=== PATIENT | female | born 1970 | race African-American/Black ===

== ENCOUNTER 2016-09-18 09:41 | Emergency (ER) | payer SELFPAY ==
[~2016-09-18] VITALS: Ht 167.6 cm; Wt 53.5 kg
--- NOTE | 2016-09-18 10:10 | RAD ---
Left ankle radiographs History: Twisted her ankle while walking, pain. Comparison: None. Findings: AP, lateral, and oblique views of the left ankle. No acute fracture or dislocation is identified. Lateral ankle soft tissue swelling is seen. Impression: Lateral ankle soft tissue swelling. No acute osseous traumatic injury identified.
--- NOTE | 2016-09-18 10:14 | ED.ADGEN ---
Past History Past Medical History: No Pertinent History Adult General Chief Complaint Chief Complaint left ankle pain HPI HPI Patient is a 46 year old female who presents with left ankle pain and swelling. Pt inverted her foot yesterday and then worked on the affected injury for 12 hours. Pain and swelling most prominent on lateral aspect with some radiation into the foot. She has injured the ankle before, no surgeries, denies other injuries. Review of Systems Review of Systems Constitutional: Denies fever or chills [] Eyes: Denies change in visual acuity, redness, or eye pain [] HENT: Denies nasal congestion or sore throat [] Respiratory: Denies cough or shortness of breath [] Cardiovascular: no chest pain GI: Denies abdominal pain, nausea, vomiting, bloody stools or diarrhea [] : Denies dysuria or hematuria [] Musculoskeletal: Denies back pain Integument: Denies rash or skin lesions [] Neurologic: Denies headache, focal weakness or sensory changes [] Allergies Allergies Allergies Coded Allergies Type Severity Reaction Last Updated Verified doxycycline Allergy Intermediate 09/18/16 Yes Physical Exam Physical Exam Constitutional: Well developed, well nourished, no acute distress, non-toxic appearance. [] HENT: Normocephalic, atraumatic Eyes: conjunctiva normal, no discharge. [] Neck: Normal range of motion, no tenderness, supple, no stridor. [] Cardiovascular:Heart rate regular with regular rhythm Lungs & Thorax: no respiratory distress Skin: Warm, dry, intact Extremities: left ankle with lateral malleolus edema and ttp, limited ROM 2/2 to pain, no deformity, pulse intact, no ttp over the foot or proximal left, knee , achilles intact Neurologic: Alert and oriented X 3, normal motor function, normal sensory function, no focal deficits noted. [] Psychologic: Affect normal, judgement normal, mood normal. [] Current Patient Data Vital Signs Vital Signs Date Time Temp Pulse Resp B/P Pulse Ox O2 Delivery O2 Flow Rate FiO2 09/18/16 10:26 84 22 202/117 98 Room Air 09/18/16 09:45 97.9 Lab Results Laboratory Tests Test 09/18/16 10:44 POC Hemoglobin 14.6gm/dL POC Hematocrit 43% POC Sodium 140mmol/L (135-145) POC Potassium 3.7mmol/L (3.5-5.0) POC Chloride 99mmol/L (98-110) POC Total CO2 26mmol/L (23-32) Anion Gap 20mmol/L (6-14) H POC Blood Urea Nitrogen 8mg/dL (8-26) POC Creatinine 0.8mg/dL (0.5-1.4) Glucose Level 94mg/dL (60-99) POC Ionized Calcium (Cornelius) 1.15mmol/L (1.13-1.32) EKG EKG [] Radiology/Procedures Radiology/Procedures xray ankle: Impression: Lateral ankle soft tissue swelling. No acute osseous traumatic injury identified. Course & Med Decision Making Course & Med Decision Making Pertinent Labs and Imaging studies reviewed. (See chart for details) Pt has ankle sprain, no fx on XRay. Placed in aircast. Recommended RICE care, ibuprofen for pain. Patient has elevated BP, she denies known h/o htn. Istat chemistry ordered, normal Cr, no symptoms with respect to HTN. Will start pt on HCTZ 25mg and I explained to pt the need to f/u with PCP and have it rechecked . Final Impression Final Impression Ankle sprain elevated blood pressure[] Problems: Dragon Disclaimer Dragon Disclaimer This electronic medical record was generated, in whole or in part, using a voice recognition dictation system. YVON ALCANTARA MD Sep 18, 2016 10:14
[2016-09-18] MEDS ORDERED: IBUP600T16 PO (10:17)
[2016-09-18 10:26] VITALS: BP 202/117
[2016-09-18 10:48] LABS: HEMOGLOBIN ISTAT 14.6 gm/dL; POTASSIUM ISTAT 3.7 mmol/L (3.5-5.0)
[2016-09-18] MEDS ORDERED: HYDR25TA9 PO (10:49)
== END 2016-09-18 10:59 | disposition home or self-care (01) ==
LOC: ER 09:41
DX: S93.402A Sprain of unspecified ligament of left ankle, initial encounter (principal); I10 Essential (primary) hypertension; Z88.1 Allergy status to other antibiotic agents; X58.XXXA Exposure to other specified factors, initial encounter; Y93.89 Activity, other specified; Y99.8 Other external cause status; Y92.89 Other specified places as the place of occurrence of the external cause
CPT/HCPCS: 29515; 73610; 80047; 99284-25

== ENCOUNTER 2021-09-14 15:00 | Emergency (ER) | payer SELFPAY ==
[~2021-09-14] VITALS: Ht 167.6 cm; Wt 57.0 kg
[~2021-09-14 15:00] MED LIST: HYDR-2145 PO; IBUP600T16 PO
[2021-09-14 15:18] VITALS: BP 155/81
--- NOTE | 2021-09-14 16:05 | RAD ---
Study: 1. XR EXAM OF ANKLE_RIGHT 3VIEWS 2. XR RT TIBIA+FIBULA Indication: Fall. Comparison: None. Findings: AP and lateral views of the tibia/fibula and AP, oblique and lateral views of the ankle. Obliquely oriented, mildly displaced fracture of the distal tibial shaft with cortical offset by appr oximately 4 mm proximally and 3 mm distally. Mild comminution. The craniocaudal length of the fractur e is around 8 cm. The proximal tibia is intact. The fibula is intact. No fracture or malalignment at the partially assessed knee. Intact malleoli. Symmetric ankle mortise considering the absence of weightbearing. Unremarkable talar dome and rest of the partially assessed foot. Impression: Right tibia/fibula and right ankle: Obliquely oriented, mildly comminuted and minimally displaced fracture of the distal tibial shaft ext ending over a length of approximately 8 cm. No fracture seen elsewhere. Maintained alignment at the k nee and ankle joints. Electronically signed by: REEMA FORTE MD (09/14/2021 4:03 PM) [facility]
--- NOTE | 2021-09-14 16:11 | PHYS DOC ---
Past History Past Medical History: No Pertinent History (BRIT SANTOS APRN) Past Surgical History: Tonsillectomy, Other (BRIT SANTOS APRN) Alcohol Use: Occasionally Drug Use: None (BRIT SANTOS APRN) General Adult EDM: Chief Complaint: ANKLE PROBLEM HPI: HPI: Patient is a 51-year-old female who came in with right leg pain. Patient states last night she was out on her deck smoking a cigarette when she got up to walk inside she twisted her leg. Patient is unable to bear weight. Pedal pulses intact. Cap refill less than 2 seconds. Sensations intact. Denies taking anything today for pain. Pain is worse with movement. Denies medical history. (BRIT SANTOS APRN) Review of Systems: Review of Systems: ROS At least 10 ROS systems have been reviewed and are negative except as documented in the HPI. General: Negative except as outlined in HPI above. Skin: Negative except as outlined in HPI above. HEENT: Negative except as outlined in HPI above. Neck: Negative except as outlined in HPI above. Respiratory: Negative except as outlined in HPI above.. Cardiovascular: Negative except as outlined in HPI above. Abdomen: Negative except as outlined in HPI above. : Negative except as outlined in HPI above. Back/MSK: Negative except as outlined in HPI above. Neuro: Negative except as outlined in HPI above. Psych: Negative except as outlined in HPI above. (BRIT SANTOS APRN) Allergies: Allergies: Allergies Coded Allergies Type Severity Reaction Last Updated Verified doxycycline Allergy Intermediate 09/18/16 Yes (BRIT SANTOS APRN) Physical Exam: PE: Constitutional: Well developed, well nourished, no acute distress, non-toxic appearance. [] HENT: Normocephalic, atraumatic, bilateral external ears normal, oropharynx moist, no oral exudates, nose normal. [] Eyes: PERRLA, EOMI, conjunctiva normal, no discharge. [] Neck: Normal range of motion, no tenderness, supple, no stridor. [] Cardiovascular:Heart rate regular rhythm, no murmur [] Lungs & Thorax: Bilateral breath sounds clear to auscultation [] Abdomen: Bowel sounds normal, soft, no tenderness, no masses, no pulsatile masses. [] Skin: Warm, dry, no erythema, no rash. [] Back: No tenderness, no CVA tenderness. [] Extremities: Right lower leg tenderness, mild swelling, unable to bear weight on right leg, pedal pulses intact Neurologic: Alert and oriented X 3, normal motor function, normal sensory function, no focal deficits noted. [] Psychologic: Affect normal, judgement normal, mood normal. [] (BRIT SANTOS APRN) Current Patient Data: Vital Signs: Vital Signs Date Time Temp Pulse Resp B/P (MAP) Pulse Ox O2 Delivery O2 Flow Rate FiO2 09/14/21 15:18 98.0 91 16 155/81 (105) 99 Room Air (BRIT SANTOS APRN) EKG: EKG: [] (BRIT SANTOS APRN) Radiology/Procedures: Radiology/Procedures: []Study: 1. XR EXAM OF ANKLE_RIGHT 3VIEWS 2. XR RT TIBIA+FIBULA Indication: Fall. Comparison: None. Findings: AP and lateral views of the tibia/fibula and AP, oblique and lateral views of the ankle. Obliquely oriented, mildly displaced fracture of the distal tibial shaft with cortical offset by approximately 4 mm proximally and 3 mm distally. Mild comminution. The craniocaudal length of the fracture is around 8 cm. The proximal tibia is intact. The fibula is intact. No fracture or malalignment at the partially assessed knee. Intact malleoli. Symmetric ankle mortise considering the absence of weightbearing. Unremarkable talar dome and rest of the partially assessed foot. Impression: Right tibia/fibula and right ankle: Obliquely oriented, mildly comminuted and minimally displaced fracture of the distal tibial shaft extending over a length of approximately 8 cm. No fracture seen elsewhere. Maintained alignment at the knee and ankle joints. Electronically signed by: REEMA FORTE MD (09/14/2021 4:03 PM) [facility] Study: 1. XR EXAM OF ANKLE_RIGHT 3VIEWS 2. XR RT TIBIA+FIBULA Indication: Fall. Comparison: None. Findings: AP and lateral views of the tibia/fibula and AP, oblique and lateral views of the ankle. Obliquely oriented, mildly displaced fracture of the distal tibial shaft with cortical offset by approximately 4 mm proximally and 3 mm distally. Mild comminution. The craniocaudal length of the fracture is around 8 cm. The pr oximal tibia is intact. The fibula is intact. No fracture or malalignment at the partially assessed knee. Intact malleoli. Symmetric ankle mortise considering the absence of weightbearing. Unremarkable talar dome and rest of the partially assessed foot. Impression: Right tibia/fibula and right ankle: Obliquely oriented, mildly comminuted and minimally displaced fracture of the distal tibial shaft extending over a length of approximately 8 cm. No fracture seen elsewhere. Maintained alignment at the knee and ankle joints. Electronically signed by: REEMA FORTE MD (09/14/2021 4:03 PM) [facility] (BRIT SANTOS APRN) Heart Score: C/O Chest Pain: No Risk Factors: Risk Factors: DM, Current or recent (<one month) smoker, HTN, HLP, family history of CAD, obesity. Risk Scores: Score 0 - 3: 2.5% MACE over next 6 weeks - Discharge Home Score 4 - 6: 20.3% MACE over next 6 weeks - Admit for Clinical Observation Score 7 - 10: 72.7% MACE over next 6 weeks - Early Invasive Strategies (BRIT SANTOS APRN) Course & Med Decision Making: Course & Med Decision Making Pertinent Labs and Imaging studies reviewed. (See chart for details) [] 51-year-old female came in with right leg pain. Patient states that she stood up out of her chair and twisted her right leg. X-ray of right leg obtained. Patient given hydrocodone for pain. Mildly comminuted and minimally displaced fracture of the distal tibial shaft. Posterior long leg splint applied. Educated RICE. Ibuprofen for break through pain. Sending patient home with prescription for hydrocodone and ortho follow up. (BRIT SANTOS APRN) Course & Med Decision Making Did not see or evaluate patient. Did not discuss patient with [employer] [facility] [facility]PECT[facility]. Generally agree with [employer] INSPECTOR's work-up and disposition per note. (BEBO JANE MD) [place] Disclaimer: Dragon Disclaimer: This electronic medical record was generated, in whole or in part, using a voice recognition dictation system. (BRIT SANTOS APRN) Departure Departure: Impression: Primary Impression: Tibia fracture Qualified Codes: S82.301A - Unspecified fracture of lower end of right tibia, initial encounter for closed fracture Disposition: HOME / SELF CARE / HOMELESS Condition: STABLE Referrals: PCP,NO (PCP) Patient Instructions: Tibial Fracture, Adult Additional Instructions: You are seen in the emergency room for right leg pain. Your x-ray showed a tibia fracture. We have placed a splint on your right leg and gave you crutches. Rest, use ice to the area, elevate. You need to follow-up with [facility]. Please call them on Wednesday and make an appointment. I am sending you home with hydrocodone to take for pain. You can take ibuprofen for breakthrough pain. Return to emergency room for worsening symptoms or concerns. EMERGENCY DEPARTMENT GENERAL DISCHARGE INSTRUCTIONS Thank you for coming to [facility] (ED) today and trusting us with you care. We trust that you had a positivie experience in our Emergency Department. If you wish to speak to the department management, you may call the director at [phone]. YOUR FOLLOW UP INSTRUCTIONS ARE FOLLOWS: 1. Do you have a private Doctor? If you do not have a private doctor, please ask for a resource list of physicians or clinics that may be able to assist you with foll ow up care. 2. The Emergency Physician has interpreted your x-rays. The X-Ray specialist will also review them. If there is a change in the findings, you will be notified in 48 hours when at all possible. 3. A lab test or culture has been done, your results will be reviewed and you will be notified if you need a change in treatment. ADDITIONAL INSTRUCTIONS AND INFORMATION: 1. Your care today has been supervised by a physician who is specially trained in emergency care. Many problems require more than one evaluation for a complete diagnosis and treatment. We recommend that you schedule your follow up appointment as re commended to ensure complete treatment of you illness or injury. If you are unable to obtain follow up care and continue to have a problem, or if your condition worsens, we recommend that you return to the ED. 2. We are not able to safely determine your condition over the phone nor are we able to give sound medical advice over the phone. For these safety reasons, if you call for medical advice we will ask you to come to the ED for further evaluation. 3. If you have any questions regarding these discharge instructions please call the ED at [phone]. SAFETY INFORMATION: In the interest of safety, wellness, and injury prevention; we encourage you to wear your sealbelt, if you smoke; quite smoking, and we encourage family to use a protective helmet for bicycling and other sporting events that present an increased risk for head injury. IF YOUR SYMPTOMS WORSEN OR NEW SYMPTOMS DEVELOP, OR YOU HAVE CONCERNS ABOUT YOUR CONDITION; OR IF YOUR CONDITION WORSENS WHILE YOU ARE WAITING FOR YOUR FOLLOW UP APPOINTMENT; EITHER CONTACT YOUR PRIMARY CARE DOCTOR, THE PHYSICIAN WHOSE NAME AND NUMBER YOU WERE GIVEN, OR RETURN TO THE ED IMMEDIATELY. Scripts Hydrocodone Bit/Acetaminophen (HYDROCODONE-APAP 5-325 ) 1 Each Tablet 1 TAB PO PRN Q6HRS PRN for PAIN for 3 Days, #12 TAB 0 Refills Prov: BRIT SANTOS APRN 09/14/21 BRIT SANTOS APRN Sep 14, 2021 16:10 BEBO JANE MD Sep 17, 2021 18:19
[2021-09-14] MEDS ORDERED: HYDROcodone/APAP 5/325MG 1 TAB TABLET PO ONE ×2 (16:15→17:15)
[2021-09-14] MEDS ORDERED: HYDR-2155 PO (16:27)
== END 2021-09-14 17:29 | disposition home or self-care (01) ==
LOC: ER 15:00
DX: S82.391A Other fracture of lower end of right tibia, initial encounter for closed fracture (principal); F17.210 Nicotine dependence, cigarettes, uncomplicated; Z88.1 Allergy status to other antibiotic agents; X50.9XXA Other and unspecified overexertion or strenuous movements or postures, initial encounter; Y93.89 Activity, other specified; Y92.89 Other specified places as the place of occurrence of the external cause; Y99.8 Other external cause status
CPT/HCPCS: 29505; 73590; 73610; 99284

== ENCOUNTER → 2021-09-19 | Outpatient (CLI) | payer OTHER ==
[2021-09-14 15:18] VITALS: BP 155/81
[~2021-09-19] MED LIST changes: +HYDR-2155 PO
--- NOTE | 2021-09-19 16:49 | RAD ---
EXAMINATION: XR EXAM OF ANKLE_RIGHT 3VIEWS CLINICAL HISTORY: Reason follow-up right distal tibia fracture 09/14/2021. TECHNIQUE: XR EXAM OF ANKLE_RIGHT 3VIEWS COMPARISON: 09/14/2021 FINDINGS/ IMPRESSION: Overlying fiberglass cast limits evaluation of fine osseous and soft tissue detail. Minimally displaced comminuted distal tibial metadiaphysis fracture remains in similar alignment with persistent radiolucent fracture planes. Joint spaces and alignment at the ankle maintained. Similar to slightly increased medial soft tissue swelling. Electronically signed by: Yousif Lehman DO (09/19/2021 4:46 PM) [id number]
== END ==
LOC: RAD 15:03
PROVIDERS: ATTEND Podiatrist
DX: S82.871A Displaced pilon fracture of right tibia, initial encounter for closed fracture (principal); M79.89 Other specified soft tissue disorders; X58.XXXA Exposure to other specified factors, initial encounter; Y93.89 Activity, other specified; Y92.89 Other specified places as the place of occurrence of the external cause; Y99.8 Other external cause status
CPT/HCPCS: 73610

== ENCOUNTER → 2021-10-31 | Outpatient (CLI) | payer OTHER ==
--- NOTE | 2021-10-31 16:37 | RAD ---
XR EXAM OF ANKLE_RIGHT 3VIEWS History: Follow-up ankle fracture. Pain. Comparison: 09/19/2021, 09/14/2021 Findings: Disuse osteopenia. Redemonstrated spiral fracture of the distal tibial metadiaphysis, now with healin g callus. Mild apex lateral angulation. The ankle mortise and talar dome are intact. No significant d egenerative changes. Soft tissues are unremarkable. Impression: 1. Healing spiral fracture distal tibial metadiaphysis. Electronically signed by: Raul Willoughby MD (10/31/2021 4:35 PM) [id number]
== END ==
LOC: RAD 13:35
PROVIDERS: ATTEND Podiatrist
DX: S82.871A Displaced pilon fracture of right tibia, initial encounter for closed fracture (principal); M85.871 Other specified disorders of bone density and structure, right ankle and foot; M21.861 Other specified acquired deformities of right lower leg; X58.XXXA Exposure to other specified factors, initial encounter; Y93.89 Activity, other specified; Y92.89 Other specified places as the place of occurrence of the external cause; Y99.8 Other external cause status
CPT/HCPCS: 73610